=== PATIENT | female | born 1985 | race Caucasian/White ===

== ENCOUNTER 2016-10-31 19:52 | Emergency (ER) | payer OTHER ==
[2016-10-31 21:17] VITALS: BP 121/67
--- NOTE | 2016-10-31 22:07 | UC ---
Throat Pain/Nasal Emerson HPI - HPI Summary HPI Summary: compalint of sore throat that started 3 days ago fever for 2 days fatigue swollen lymph nodes slight nasal congestion denies cough took some ibuprofen for pain and fever relief - History of Current Complaint Chief Complaint: UCGeneralIllness Stated Complaint: THROAT PAIN Time Seen by Provider: 10/31/16 22:01 Hx Obtained From: Patient Hx Last Menstrual Period: 10/21/16 - Allergies/Home Medications Allergies/Adverse Reactions: Allergies Allergy/AdvReac Type Severity Reaction Status Date / Time No Known Allergies Allergy Verified 10/31/16 21:06 Home Medications: Home Medications busPIRone TAB* [Buspar TAB*] 20 mg PO BID 10/31/16 [History Confirmed 10/31/16] PMH/Surg Hx/FS Hx/Imm Hx Previously Healthy: Yes Endocrine History Of: Denies: Diabetes, Thyroid Disease, Hyperthyroidism, Hypothyroidism, Dyslipidemia Cardiovascular History Of: Denies: Cardiac Disorders, Hypertension, Pacemaker/ICD, Myocardial Infarction , Congestive Heart Failure, Atrial Fibrillation, Deep Vein Thrombosis, Bleeding Disorders Respiratory History Of: Denies: COPD, Asthma, Bronchitis, Pneumonia, Pulmonary Embolism GI/ History Of: Denies: Gastroesophageal Reflux, Ulcer, Gastrointestinal Bleed, Gall Bladder Disease, Kidney Stones, Diverticulitis, Renal Disease, Urosepsis Neurological History Of: Denies: TIA, CVA, Dementia, Seizures, Migraine Psychological History Of: Reports: Anxiety, Depression - No medications at this time. Denies: Bipolar Disorder, Schizophrenia, Post Traumatic Stress Disorder Cancer History Of: Denies: Lung Cancer, Colorectal Cancer, Breast Cancer, Prostate Cancer, Cervical Cancer Other History Of: Negative For: HIV, Hepatitis B, Hepatitis C, Anticoagulant Therapy - Surgical History Surgical History: None - Family History Known Family History: Positive: Cardiac Disease, Hypertension, Diabetes - Social History Occupation: Employed Full-time Lives: With Family Alcohol Use: Weekly Substance Use Type: None Smoking Status (MU): Never Smoked Tobacco - Immunization History Most Recent Influenza Vaccination: 2016 Review of Systems Constitutional: Fever Skin: Negative Eyes: Negative ENT: Sore Throat, Nasal Discharge Respiratory: Negative Cardiovascular: Negative Gastrointestinal: Negative Genitourinary: Negative Motor: Negative Neurovascular: Negative Musculoskeletal: Negative Neurological: Negative Psychological: Negative All Other Systems Reviewed And Are Negative: Yes Physical Exam Triage Information Reviewed: Yes Appearance: No Pain Distress, Well-Nourished Vital Signs: Initial Vital Signs Temp 98.2 F 10/31/16 21:09 Pulse 79 10/31/16 21:09 Resp 16 10/31/16 21:09 BP 121/67 10/31/16 21:09 Pulse Ox 100 10/31/16 21:09 Vital Signs Reviewed: Yes Eyes: Positive: Conjunctiva Clear ENT: Positive: Pharyngeal erythema, TMs normal, Tonsillar swelling, Tonsillar exudate. Negative: Nasal congestion, Nasal drainage Dental: Positive: Cervical Lymphadenopathy Respiratory: Positive: Lungs clear, Normal breath sounds, No respiratory distress Cardiovascular: Positive: RRR, No Murmur, Pulses Normal Abdomen Description: Positive: Nontender, Soft Bowel Sounds: Positive: Present Musculoskeletal Exam: Normal Neurological: Positive: Alert Psychological Exam: Normal Skin Exam: Normal Throat Pain/Nasal Course/Dx - Differential Dx/Diagnosis Differential Diagnosis/HQI/PQRI: Pharyngitis, Tonsillitis Provider Diagnoses: viral pharyngitis Discharge - Discharge Plan Condition: Stable Disposition: HOME Patient Education Materials: Pharyngitis (ED) Referrals: Sheila Mo NP [Primary Care Provider] - Additional Instructions: PHARYNGITIS (Sore Throat) What is Pharyngitis? The medical name for a sore throat is Pharyngitis. It is caused by an infection or irritation of your throat or tonsils. The infection can be caused by a virus or by bacteria. Not everyone with Pharyngitis needs antibiotics. Antibiotics will not make viral infections better, and they will not help a sore throat caused by irritation. Symptoms May Include: Sore throat Swelling of the glands in the neck Trouble or pain with swallowing Fever Headache Cough Extreme tiredness Ear pain Treatment Recommendations: Gargle every few hours with a solution of 1/4 teaspoon of salt dissolved in 1/ 2 cup of warm water. Drink plenty of warm beverages, like tea with lemon, (with or without honey) and soup. You may eat and drink cold foods and liquids like frozen yogurt, popsicles, and ice water if that makes your throat feel better. The goal is to keep you well hydrated. Use a "cool-mist" vaporizer or humidifier in the room where you spend most of your time. If you get a sore throat often, consider adding an electronic air filter and humidifier to your furnace system. Don't smoke. Do not eat spicy foods. Take medicine exactly as prescribed. If you do not think it is helping, call your healthcare provider. Do not increase how much or how often you take it without getting their OK first. Non-prescription anti-inflammatory medicine like ibuprofen (Motrin, Advil) or naproxen (Aleve) may help lessen the pain. You should not take these medicines if you have had bleeding in your stomach in the past. Acetaminophen ( Tylenol) is another choice of medicine that may help the pain. If pain medicine that makes you tired or sleepy or contains narcotics is prescribed, you should not drink, drive, or participate in any other activities that you need to be clear-headed for. Please keep all medicines out of the reach of children. Do not get in close contact with anyone you know who has a sore throat. Use throat lozenges (Cepostat, Waters[place], etc.) or suck on hard candy for temporary relief of the pain with swallowing. (Do not give to children under age 5.) Call Your Doctor or Return Here IF: Your symptoms do not start to get better within 2 days or you become worse. You have a fever over 101.0 F orally. You cant swallow liquids or saliva. You are drooling. You start to have trouble breathing. You start to have a rash
== END 2016-10-31 22:37 | disposition home or self-care (01) ==
LOC: UCEAST 19:52
DX: J02.9 Acute pharyngitis, unspecified (principal); R50.9 Fever, unspecified; R09.81 Nasal congestion
CPT/HCPCS: 87651; 99211; G0463

== ENCOUNTER 2017-03-27 12:22 | Emergency (ER) | payer OTHER ==
[2017-03-27 12:32] VITALS: BP 116/73
--- NOTE | 2017-03-27 13:07 | UC ---
Complaint Female HPI - HPI Summary HPI Summary: Patient presents with complaints of one day onset urinary urgency, frequency and dysuria. She denies fever, chills, nausea, vomiting. She states these symtpoms are similar to her previous UTI's. - History Of Current Complaint Chief Complaint: UCGU Stated Complaint: UTI Time Seen by Provider: 03/27/17 12:52 Hx Obtained From: Patient Hx Last Menstrual Period: last week of February, ?: No Onset/Duration: Gradual Onset, Lasting Days Timing: Constant Severity Initially: Mild Severity Currently: Moderate Character: Burning Aggravating Factor(s): Urination Associated Signs And Symptoms: Positive: Negative Related Hx: Similar Episode/Dx as: - uti - Risk Factors Ectopic Risk Factor: Negative Ovarian Torsion Risk Factor: Negative - Allergies/Home Medications Allergies/Adverse Reactions: Allergies Allergy/AdvReac Type Severity Reaction Status Date / Time No Known Allergies Allergy Verified 10/31/16 21:06 PMH/Surg Hx/FS Hx/Imm Hx Previously Healthy: Yes Other History Of: Negative For: HIV, Hepatitis B, Hepatitis C, Anticoagulant Therapy - Surgical History Surgical History: None - Family History Known Family History: Positive: Cardiac Disease, Hypertension, Diabetes - Social History Occupation: Employed Full-time Lives: Alone Alcohol Use: Weekly Substance Use Type: None Smoking Status (MU): Never Smoked Tobacco - Immunization History Most Recent Influenza Vaccination: 2016 Review of Systems Genitourinary: Dysuria, Frequency, Urgency All Other Systems Reviewed And Are Negative: Yes Physical Exam Triage Information Reviewed: Yes Appearance: Well-Appearing Vital Signs: Initial Vital Signs Temp 98.4 F 03/27/17 12:28 Pulse 98 03/27/17 12:28 Resp 16 03/27/17 12:28 BP 116/73 03/27/17 12:28 Vital Signs Reviewed: Yes Eye Exam: Normal ENT Exam: Normal Neck exam: Normal Respiratory Exam: Normal Cardiovascular Exam: Normal Abdominal Exam: Normal Musculoskeletal Exam: Normal Skin Exam: Normal Complaint Female Dx - Course Course Of Treatment: Patient presents with complaints of urinary urgency, frequency, and dysuria. UA is consisent with UTI. The patient was RX macrobid. She was instructed to follow up with her PCP if her symtpoms do not improve as anticipated. - Differential Dx/Diagnosis Differential Diagnosis/HQI/PQRI: Urinary Tract Infection Provider Diagnoses: uti Discharge - Discharge Plan Condition: Stable Disposition: HOME Prescriptions: Nitrofurantoin Monohyd Macro [Macrobid] 100 mg PO BID #14 cap Patient Education Materials: Urinary Tract Infection in Women (ED) Referrals: Malaika Tilley MD [Primary Care Provider] -
--- NOTE | 2017-03-29 16:12 | UC ---
Progress - Progress Note Progress Note: notify pt no UTI stop antibiotic see PMD or return here if still symptomatic
== END 2017-03-27 13:06 | disposition home or self-care (01) ==
LOC: UCEAST 12:22
DX: N39.0 Urinary tract infection, site not specified (principal); Z87.440 Personal history of urinary (tract) infections
CPT/HCPCS: 81003; 87086; 99212; G0463

== ENCOUNTER 2018-12-26 08:40 | Emergency (ER) | payer OTHER ==
--- OUTSIDE RECORDS SUMMARY | 2018-12-26 08:46 | XMS REPORT | Continuity of Care Document ---
:1985 External Reference #:[id number] Author Name Maxine Kay Care Team Providers Name Role Phone Malaika Tilley MD Primary Care Physician Unavailable Payers Date Identification Numbers Payment Provider Subscriber Policy Number: [id number] Leonel Killian Group Number: [id number] [address] PayID: [id number] [place] [address] Problems Active Problems Provider Date Anxiety disorder Shelia Mo, N.PMyla Onset: 05/11/2016 Depressive disorder Sheila Mo, N.PMyla Onset: 05/11/2016 Excessive and frequent menstruation Lamar Olguin M.D. 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 Capsules Vitamin B Complex 1 by mouth every Unknown day Tablets Vitamin D 1 by mouth every Unknown (Cholecalciferol) day 1000Unit Capsules Vitamin C 1 by mouth every Unknown 500mg Tablets day Ibuprofen by mouth every 4 Unknown 400mg Tablets to 6 hours as needed Flonase Allergy spray 1 spray in Unknown Relief each nostril Suspension twice daily Digestive Enzyme Unknown Fish Oil 2 caps by mouth Unknown 1200mg twice daily Capsules Herbal Anxiety Unknown History Medications Probiotic Formula Take One 60caps Sheila Chepe, 04/22/2018 - Capsule By N.P. 12/18/2018 [id number] Mouth Twice A Capsules Day Cephalexin 1 by mouth 15tabs Sangita B. 04/03/2018 - 500mg Tablets three times a [place], TRUCK SERVICE TECHNICIAN Unknown day Hydroxyzine Pamoate one by mouth 30caps F41.9 Sheila Chepe, 03/15/2018 - 25mg every 8 hours N.P. 12/18/2018 Capsules as needed for anxiety Clindamycin HCL 1 cap tid 30caps L08.9 Sheila Chepe, 12/28/2017 - 300mg N.P. 01/07/2018 Capsules Benzonatate one by mouth 30caps J06.9 Sheila Chepe, 04/09/2017 - 100mg Capsules three times N.P. 04/23/2017 daily as needed for cough Valacyclovir HCL one po tid for 21tabs N77.1 Sheila Chepe, 03/30/2017 - 1gm 7 days N.P. 04/06/2017 Tablets Bulijxvmd-Ahtpkxmvaf-We APply prn for 5800gm N77.1 Sheila Chepe, 2016 - eam Base pain N.P. 07/31/2017 2.5-2.5% Cream Buspirone HCL Take One 60tabs F32.81 Sheila Mo, 03/30/2017 - 15mg Tablets Tablet By N.P. 12/18/2018 Mouth Twice A Day Aller-Ease 1 by mouth 90tabs Lamar Olguin, 01/11/2017 - 60mg Tablets every day M.D. 07/31/2017 Amoxicillin/Clavulanate 1 tab by mouth 20tabs J01.90 Lamar Olguin, 01/11 - Potassium twice a day M.D. 02/20/2017 875-125mg Tablets Penicillin V Potassium 1 tablet by 20tabs J02.9 Bradley Jasso, TRUCK SERVICE TECHNICIAN 11/08/2016 - mouth twice a 11/12/2016 500mg Tablets day for 10 days Buspirone HCL take two 120tabs F32.81 Sheila Mo, 05/11/2016 - 5mg Tablets tablets by N.P. 03/30/2017 mouth twice a day Probiotic Daily 1 by mouth Unknown - Capsules every day 12/18/2018 Immunizations CPT Code Status Date Vaccine Reaction Lot # [id number] Given 05/11/2016 Influ Virus Vaccine, no reaction noted .. [id number] Quadrivalent, Split Virus, [place] [id number] Refused 07/31/2017 Influenza Virus Vaccine, Quadrivalent, Split, Preservative Free Vital Signs Date Vital Result Comment 12/18/2018 10:11am Height 68.5 inches 5'8.50" Weight 138.38 lb Heart Rate 71 /min BP Systolic 110 mmHg BP Diastolic 70 mmHg Body Temperature 97.0 F O2 % BldC Oximetry 97 % BMI (Body Mass Index) 20.7 kg/m2 04/12/2018 12:58pm Heart Rate 68 /min Respiratory Rate 16 /min Body Temperature 96.9 F 04/03/2018 2:19pm Heart Rate 74 /min Respiratory Rate 16 /min Body Temperature 97.2 F 03/27/2018 2:35pm Heart Rate 84 /min BP Systolic Sitting 116 mmHg BP Diastolic Sitting 70 mmHg Respiratory Rate 16 /min Body Temperature 98.2 F 03/15/2018 11:02am Height 68.5 inches 5'8.50" Weight 141.00 lb Heart Rate 77 /min BP Systolic 106 mmHg BP Diastolic 62 mmHg Body Temperature 97.9 F O2 % BldC Oximetry 98 % BMI (Body Mass Index) 21.1 kg/m2 12/28/2017 10:44am Weight 141.00 lb Heart Rate 82 /min BP Systolic 100 mmHg BP Diastolic 60 mmHg Body Temperature 97.5 F O2 % BldC Oximetry 98 % 07/31/2017 10:19am Weight 137.50 lb Heart Rate 100 /min BP Systolic Sitting 110 mmHg BP Diastolic Sitting 78 mmHg O2 % BldC Oximetry 98 % 04/09/2017 10:35am Height 68.5 inches 5'8.50" Weight 144.50 lb Heart Rate 91 /min BP Systolic 100 mmHg BP Diastolic 62 mmHg Body Temperature 97.2 F O2 % BldC Oximetry 97 % BMI (Body Mass Index) 21.6 kg/m2 03/30/2017 4:07pm Weight 146.25 lb Heart Rate 79 /min BP Systolic 108 mmHg BP Diastolic 64 mmHg Body Temperature 97.7 F O2 % BldC Oximetry 99 % 02/20/2017 10:34am Weight 144.00 lb Heart Rate 97 /min BP Systolic 110 mmHg BP Diastolic 64 mmHg Body Temperature 97.8 F O2 % BldC Oximetry 98 % 01/11/2017 9:59am Weight 142.12 lb Heart Rate 106 /min BP Systolic 102 mmHg BP Diastolic 60 mmHg Body Temperature 98.2 F O2 % BldC Oximetry 99 % 01/08/2017 9:19am Height 69 inches 5'9" Weight 143.12 lb Heart Rate 86 /min BP Systolic 100 mmHg BP Diastolic 50 mmHg Body Temperature 97.7 F O2 % BldC Oximetry 98 % BMI (Body Mass Index) 21.1 kg/m2 11/08/2016 4:15pm Weight 135.00 lb Heart Rate 98 /min BP Systolic 122 mmHg BP Diastolic 68 mmHg Body Temperature 97.0 F O2 % BldC Oximetry 99 % 08/11/2016 9:38am Weight 137.00 lb Heart Rate 74 /min BP Systolic Sitting 110 mmHg BP Diastolic Sitting 62 mmHg Respiratory Rate 15 /min Body Temperature 97.8 F O2 % BldC Oximetry 98 % 05/11/2016 8:55am Height 68 inches 5'8" Weight 143.00 lb Heart Rate 77 /min BP Systolic 98 mmHg BP Diastolic 59 mmHg Body Temperature 97.9 F O2 % BldC Oximetry 98 % BMI (Body Mass Index) 21.7 kg/m2 Results Test Date Facility Test Result H/L Range Note Laboratory test 08/31/2017 [facility] Cytology SEE RESULT [address] [place] [address] [phone] CBC Auto Diff 03/31/2017 [facility] White Blood 7.9 10^3/uL N 3.5-10.[address] [place] [address] [phone] Red Blood Count 4.62 10^6/uL N 4.0-5.4 Hemoglobin 13.6 g/dL N 12.0-16.0 Hematocrit 41 % N 35-47 Mean Corpuscular Volume 89 fL N 80-97 Mean Corpuscular Hemoglobin 29 pg N 27-31 Mean Corpuscular HGB Conc 33 g/dL N 31-36 Red Cell Distribution Width 13 % N 10.5-15 Platelet Count 247 10^3/uL N 150-450 Mean Platelet Volume 9 um3 N 7.4-10.4 Abs Neutrophils 4.1 10^3/uL N 1.5-7.7 Abs Lymphocytes 2.7 10^3/uL N 1.0-4.8 Abs Monocytes 0.9 10^3/uL High 0-0.8 Abs Eosinophils 0.1 10^3/uL N 0-0.6 Abs Basophils 0 10^3/uL N 0-0.2 Abs Nucleated RBC 0 10^3/uL N Granulocyte % 52.5 % N 38-83 Lymphocyte % 34.5 % N 25-47 Monocyte % 11.4 % High 1-9 Eosinophil % 1.2 % N 0-6 Basophil % 0.4 % N 0-2 Nucleated Red Blood Cells % 0 N Laboratory test 03/31/2017 [facility] Anti Nuclear 0.5 U N 2 finding [address] [facility] [place] [address] [phone] Comp Metabolic 03/31/2017 [facility] Sodium 139 mmol/L N 133- 145 Panel [address] [place] [address] [phone] Potassium 4.6 mmol/L N 3.5-5.0 Chloride 103 mmol/L N 101-111 Co2 Carbon Dioxide 31 mmol/L N 22-32 Anion Gap 5 mmol/L N 2-11 Glucose 79 mg/dL N 70-100 Blood Urea Nitrogen 11 mg/dL N 6-24 Creatinine 0.62 mg/dL N 0.51-0.95 BUN/Creatinine Ratio 17.7 N 8-20 Calcium 9.6 mg/dL N 8.6-10.3 Total Protein 7.0 g/dL N 6.4-8.9 Albumin 4.5 g/dL N 3.2-5.2 Globulin 2.5 g/dL N 2-4 Albumin/Globulin Ratio 1.8 N 1-3 Total Bilirubin 0.50 mg/dL N 0.2-1.0 Alkaline Phosphatase 58 U/L N 34-104 Alt 19 U/L N 7-52 Ast 20 U/L N 13-39 Egfr Non- 112.3 N >60 Egfr 144.4 N >60 3 Laboratory test 03/31/2017 [facility] TSH (Thyroid 1.57 mcIU/mL N 0.34-5.[address] Stim [place]) [place] [address] [phone] Ua Routine 03/30/2017 [facility] Ua Specific 1005 Flora Ua PH 5 Ua Color yellow Ua Appera clear Ua WBC trace Ua Protein negative Ua Glucose normal Ua Ketones negative Ua Bilirubin negative Ua Urobilinogen normal Ua Nitrite negative Ua Occult Blood negative Urine Culture And 03/30/2017 [facility] Urine Culture SEE RESULT [address] [place] [address] [phone] Herpes Simplex PCR 03/30/2017 [facility] Herpes Source VULVAR LESION N [address] [place] [address] [phone] HSV 1 PCR Positive N Negative HSV 2 PCR Negative N Negative 5 Poc Urinalysis 03/27/2017 [facility] Poc Glucose, Negative N Negative [address] [place] [address] [phone] Poc Bilirubin, Urine Negative N Negative Poc Ketone, Urine Negative N Negative Poc Specific Flora, Urine 1.015 N 1.010-1.030 Poc Blood, Urine Trace-intact Abnormal Negative Poc pH, Urine 7.0 N 5-9 Poc Protein, Urine Negative N Negative Poc Urobilinogen, Urine 0.2 N Negative Poc Nitrite, Urine Negative N Negative Poc Leukocytes, Urine Trace Abnormal Negative Poc Color, Urine Yellow N Poc Clarity, Urine Clear N 6 Urine Culture And 03/27/2017 [facility] Urine SEE RESULT 7 , [address] [place] [address] [phone] Laboratory test 02/20/2017 [facility] Lyme Disease Negative N Negative [address] [place] [address] [phone] Ua Routine 01/11/2017 [facility] Ua Specific 1.005 Flora Ua PH 7 Ua Color dark yellow Ua Appera clear Ua WBC neg Ua Protein neg Ua Glucose neg Ua Ketones neg Ua Bilirubin trace Ua Urobilinogen 4 Ua Nitrite neg Ua Occult Blood neg Laboratory test 11/08/2016 [facility] Culture SEE RESULT [address] [place] [address] [phone] Laboratory test 11/08/2016 [facility] Rapid Group A negative finding Strep Laboratory test 10/31/2016 [facility] Rapid Strep Negative N Negative [address] [place] [address] [phone] Laboratory test 05/11/2016 [facility] TSH (Thyroid 0.88 mcIU/mL N 0.34-5.[address] Stim [place]) [place] [address] [phone] Comp Metabolic 05/11/2016 [facility] Sodium 139 mmol/L N 133- [address] [place] [address] [phone] Potassium 4.0 mmol/L N 3.5-5.0 Chloride 104 mmol/L N 101-111 Co2 Carbon Dioxide 29 mmol/L N 22-32 Anion Gap 6 mmol/L N 2-11 Glucose 87 mg/dL N 70-100 Blood Urea Nitrogen 10 mg/dL N 6-24 Creatinine 0.79 mg/dL N 0.51-0.95 BUN/Creatinine Ratio 12.7 N 8-20 Calcium 9.6 mg/dL N 8.6-10.3 Total Protein 6.8 g/dL N 6.4-8.9 Albumin 4.5 g/dL N 3.2-5.2 Globulin 2.3 g/dL N 2-4 Albumin/Globulin Ratio 2.0 N 1-3 Total Bilirubin 0.40 mg/dL N 0.2-1.0 Alkaline Phosphatase 50 U/L N 34-104 Alt 11 U/L N 7-52 Ast 19 U/L N 13-39 Egfr Non- 85.5 N >60 Egfr 109.9 N >60 12 CBC Auto Diff 05/11/2016 [facility] White Blood 8.2 10^3/uL N 3.5-10.[address] [place] [address] [phone] Red Blood Count 4.07 10^6/uL N 4.0-5.4 Hemoglobin 12.6 g/dL N 12.0-16.0 Hematocrit 37 % N 35-47 Mean Corpuscular Volume 92 fL N 80-97 Mean Corpuscular Hemoglobin 31 pg N 27-31 Mean Corpuscular HGB Conc 34 g/dL N 31-36 Red Cell Distribution Width 12 % N 10.5-15 Platelet Count 299 10^3/uL N 150-450 Mean Platelet Volume 9 um3 N 7.4-10.4 Abs Neutrophils 4.9 10^3/uL N 1.5-7.7 Abs Lymphocytes 2.4 10^3/uL N 1.0-4.8 Abs Monocytes 0.6 10^3/uL N 0-0.8 Abs Eosinophils 0.2 10^3/uL N 0-0.6 Abs Basophils 0.1 10^3/uL N 0-0.2 Abs Nucleated RBC 0 10^3/uL N Granulocyte % 60.0 % N 38-83 Lymphocyte % 29.9 % N 25-47 Monocyte % 7.0 % N 1-9 Eosinophil % 2.4 % N 0-6 Basophil % 0.7 % N 0-2 Nucleated Red Blood Cells % 0 N 1 SEE RESULT BELOW Name: JUDIT KILLIAN : [address]: Julius Dodson MD Acct: [id number] Unit: [id number] AGE: 31 Location: [facility] Re08/31/17 SEX: F Status: REG REF SPEC: [id number] POLINA: 08/31/17-[address] [facility] [address]: Julius Dodson MD REQ: [id number] RECD: 09/03/17-1116 STATUS: MARCELLE COHU DR: Malaika Tilley MD _ ORDERED: TP IMAGE ANAL, HPV/Thin Prep COMMENTS: [id number] Negative for Intraepithelial lesion or Malignancy A. Ectocervical/Endocervical Specimen Adequacy: Satisfactory of evaluation Transformation zone component identified Patient Information: HPV: High risk HPV RNA testing regardless of pap results. Actual Specimen Date: 09/03/17 Last Menstrual Date: 08/16/17 Spec Date if unknown: unknown Date Time Test Result Flag (u) Normal Range 08/31/17 1526 @ HPV RNA Negative Negative @ @ The high-risk HPV types detected by the assay include: 16, @ 18, 31, 33, 35, 39, 45, 51, 52, 56, 58, 59, 66, and 68. Signed (signature on file) LORENZO Lamar (ASCP) 09/04 1512 This Pap test was evaluated with the assistance of the ThinPrep Test Imaging System. Due to cytologic findings at the bus and rail operator microscope, comprehensive manual rescreening by a Wax Pattern Repairer may be required. The Pap Smear is a screening test designed to aid in the detection of premalignant and malignant conditions of the uterine cervix. It is not a diagnostic procedure and should not be used as the sole means of detecting cervical cancer. Both false- positive and false- negative reports do occur. Depending on your risk status, a Pap smear should be obtained and evaluated every 1-3 years. END OF REPORT * ML=Testing performed at Main Lab DEPARTMENT OF PATHOLOGY, [address] [place] [address] Paul Caputo M.D. Director [facility] # [id number] 2 REFERENCE VALUE <=1.0 (Negative) Test Performed by: [address] [id number] 3 Because ethnic data is not always readily available, this report includes an eGFR for both -Americans and non- Americans. The National Kidney Disease Education Program (NKDEP) does not endorse the use of the MDRD equation for patients that are not between the ages of 18 and 70, are , have extremes of body size, muscle mass, or nutritional status, or are non- or non-. According to the National Kidney Foundation, irrespective of diagnosis, the stage of the disease is based on the level of kidney function: Stage Description GFR(mL/min/1.73 m(2)) 1 Kidney damage with normal or decreased GFR 90 2 Kidney damage with mild decrease in GFR 60-89 3 Moderate decrease in GFR 30-59 4 Severe decrease in GFR 15-29 5 Kidney failure <15 (or dialysis) 4 SEE RESULT BELOW Name: JUDIT KILLIAN : [address]: Sheila Mo NP Acct: [id number] Unit: [id number] AGE: 31 Location: [facility] Re03/30/17 SEX: F Status: REG REF SPEC: [id number] POLINA: 03/30/[address]: Sheila Mo NP REQ: [id number] RECD: 04/02/17 STATUS: COMP _ SOURCE: URINE SPDESC: ORDERED: Urine Culture COMMENTS: [id number] INTERPRET RESULTS WITH CAUTION SPECIMENS COLLECTED 03/30/17, BUT NOT DELIVERED TO THE LAB UNTIL 04/02/17, WHICH IS BEYOND SPECIMEN STABILITY. Reviewed by Kaylan Ahumada MD Verbal to ARMANDO ALMODOVAR by [id number] at 0957 on 04/03/17. Results read back accurately. Urine Source: Random Procedure Result Reported Site Urine Culture Final 04/04/17- 1421 ML No growth of clinically significant organisms * ML - [facility] ([facility]) . END OF REPORT * ML=Testing performed at Main Lab DEPARTMENT OF PATHOLOGY, [address] [place] [address] Paul Caputo M.D. Director [facility] # [id number] 5 ADDITIONAL INFORMATION This test was developed using an analyte specific reagent. Its performance characteristics were determined by [facility] in a manner consistent with CLIA requirements. This test has not been cleared or approved by the U.S. Food and Drug Administration. Test Performed by: [address] [address] 6 Manager Pharmacy: [id number] SEE RESULT BELOW Name: JUDIT KILLIAN : [address]: Mitch Romero MD Acct: [id number] Unit: [id number] AGE: 31 Location: [facility] Re03/27/17 SEX: F Status: DEP ER SPEC: [id number] POLINA: 03/27/17-[address]: Jeannette Ngo TRUCK SERVICE TECHNICIAN REQ: [id number] RECD: 03/27/17160 STATUS: DARWIN CHOU DR: Fernando Physicians Malaika Tilley MD _ SOURCE: URINE SPDESC: ORDERED: Urine Culture COMMENTS: [id number] Procedure Result Reported Site Urine Culture Final 03/29/17- 0850 ML No growth of clinically significant organisms * ML - MAIN LAB ([facility]) . END OF REPORT * ML=Testing performed at Main Lab DEPARTMENT OF PATHOLOGY, [address] [place] [address] Paul Caputo M.D. Director [facility] # [id number] 9 Serologic response to B. burgdorferi infection is not detected, but cannot rule out early infection during which low or undetectable antibody levels to B. burgdorferi may be present. If clinically indicated, a new serum specimen should be submitted in 7-14 days. Test Performed by: [address] [address] 10 SEE RESULT BELOW Name: JUDIT KILLIAN : [address]: Bradley Jasso NP Acct: [id number] Unit: [id number] AGE: 31 Location: [facility] Re11/08/16 SEX: F Status: REG REF SPEC: [id number] POLINA: 11/08/16-[address]: Bradley Jasso NP REQ: [id number] RECD: 11/08/16 STATUS: COMP _ SOURCE: THROAT SPDESC: ORDERED: Throat Culture COMMENTS: [id number] Procedure Result Reported Site Throat Culture Final 11/10/16- 1131 ML Organism 1 NORMAL GEGE Quantity 3+ Throat cultures are clinically indicated to detect the presence of group A strep, arcanobacterium and yeast. In certain cases, predominating organisms will be reported. * ML - MAIN LAB ([facility]) . END OF REPORT * ML=Testing performed at Main Lab DEPARTMENT OF PATHOLOGY, [address] [place] [address] Paul Caputo M.D. Director [facility] # [id number] 11 Manager Pharmacy: [id number] Because ethnic data is not always readily available, this report includes an eGFR for both -Americans and non- Americans. The National Kidney Disease Education Program (NKDEP) does not endorse the use of the MDRD equation for patients that are not between the ages of 18 and 70, are , have extremes of body size, muscle mass, or nutritional status, or are non- or non-. According to the National Kidney Foundation, irrespective of diagnosis, the stage of the disease is based on the level of kidney function: Stage Description GFR(mL/min/1.73 m(2)) 1 Kidney damage with normal or decreased GFR 90 2 Kidney damage with mild decrease in GFR 60-89 3 Moderate decrease in GFR 30-59 4 Severe decrease in GFR 15-29 5 Kidney failure <15 (or dialysis) Procedures Date Code Description Status 03/27/2018 78045 I&D Abscess Simple Completed Encounters Type Date Location Provider Dx Diagnosis Office Visit 03/15/2018 [facility] Internal Sheila Mo, F41.9 Anxiety disorder , 11:20a Medicine - N.P. unspecified [place] L72.3 Sebaceous cyst Office Visit 12/28/2017 10:40a [facility] Internal Sheila Mo, L08.9 Local infection of Medicine N.P. the skin and subcutaneous tissue, unsp Office Visit 07/31/2017 10:10a [facility] Internal Lamar Olguin, N92.0 Excessive and Case Garibay M.D. frequent [place] menstruation with regular cycle R63.2 Polyphagia N94.10 Unspecified dyspareunia Office Visit 04/09/2017 10:40a [facility] Internal Sheila Mo, Z00.01 Encounter for Medicine N.P. general adult medical exam w abnormal findings F41.9 Anxiety disorder, unspecified R69 Illness, unspecified J06.9 Acute upper respiratory infection, unspecified Office Visit 03/30/2017 4:00p [facility] Internal Sheila Mo N.P. R30.0 Dysuria Medicine F41.9 Anxiety disorder, unspecified N77.1 Vaginitis, vulvitis and vulvovaginitis in dis classd elswhr R69 Illness, unspecified Office Visit 02/20/2017 [facility] Sheila Mo, S80.862A Insect bite 10:20a Medicine N.P. (nonvenomous), left lower leg, initial encounter Office Visit 01/11/2017 [facility] Internal Lamar J01.90 Acute sinusitis, 10:10a Case Olguin M.D. unspecified [place] R30.0 Dysuria Office Visit 01/08/2017 9:20a [facility] Internal Lamar Olguin J01.90 Acute sinusitis, Medicine - Gm unspecified [place] Office Visit 11/08/2016 3:40p [facility] Internal Bradley Jasso NP J02.9 Acute Medicine pharyngitis, unspecified Office Visit 08/11/2016 10:00a [facility] Internal Sheila Mo, F41.9 Anxiety disorder, Medicine N.P. unspecified F32.81 Premenstrual dysphoric disorder Office Visit 05/11/2016 9:00a [facility] Internal Sheila Mo, F32.81 Premenstrual Medicine N.P. dysphoric disorder N92.4 Excessive bleeding in the premenopausal period Z23 Encounter for immunization F41.9 Anxiety disorder, unspecified Plan of Treatment 12/18/2018 - Sheila Mo, N.P.R51 HeadacheNew Xrays:MRI Brain W/O, Ordered: Comments:To further evaluate your headaches I have ordered an MRI of your brain. I will contact you with yourresults.F43.23 Adjustment disorder with mixed anxiety and depressed moodComments:I have ordered blood work to screen for thyroid disorders and ametabolic panel.I will contact you with your results.
[2018-12-26 08:53] VITALS: BP 110/62
--- NOTE | 2018-12-26 09:27 | UC ---
Ear Complaint HPI - HPI Summary HPI Summary: 33-year-old female presents with recurring right-sided ear pain, drainage that she relates to allergies. She states that this started about a week ago and has gotten better as of late. It still is a little bit sore. Every now and then she gets and itching in the area which she scratches and then it usually is followed by pain, swelling and drainage. She does report a history of psoriasis. - History of Current Complaint Chief Complaint: UCEar Stated Complaint: EAR PAIN Time Seen by Provider: 12/26/18 09:19 Hx Obtained From: Patient Hx Last Menstrual Period: 12/20/18 Pain Intensity: 3 - Allergies/Home Medications Allergies/Adverse Reactions: Allergies Allergy/AdvReac Type Severity Reaction Status Date / Time No Known Allergies Allergy Verified 12/26/18 08:53 PMH/Surg Hx/FS Hx/Imm Hx Previously Healthy: Yes - psoriasis Other History Of: Negative For: HIV, Hepatitis B, Hepatitis C, Anticoagulant Therapy - Surgical History Surgical History: None - Family History Known Family History: Positive: Cardiac Disease, Hypertension, Diabetes - Social History Occupation: Employed Part-time Lives: With Family Alcohol Use: Weekly Substance Use Type: None Smoking Status (MU): Never Smoked Tobacco - Immunization History Most Recent Influenza Vaccination: 2016 Review of Systems All Other Systems Reviewed And Are Negative: Yes Constitutional: Negative: Fever Skin: Negative: Rash ENT: Positive: Ear Ache. Negative: Sore Throat, Nasal Discharge Respiratory: Positive: Negative Cardiovascular: Positive: Negative Physical Exam Triage Information Reviewed: Yes Appearance: Well-Appearing, No Pain Distress, Well-Nourished Vital Signs: Initial Vital Signs Temp 97.7 F 12/26/18 08:51 Pulse 84 12/26/18 08:51 Resp 17 12/26/18 08:51 BP 110/62 12/26/18 08:51 Pulse Ox 100 12/26/18 08:51 Vital Signs Reviewed: Yes Eyes: Positive: Conjunctiva Clear ENT: Positive: Hearing grossly normal, Pharynx normal, TMs normal, Other - R ear canal is clear. Mild pinnae redness without mastoid changes or tenderness. No drainage. Negative: Nasal congestion, Nasal drainage Neck: Positive: No Lymphadenopathy Respiratory: Positive: Lungs clear Cardiovascular: Positive: RRR Musculoskeletal: Positive: ROM Intact Neurological: Positive: Alert Skin Exam: Normal Ear Complaint Course/Dx - Course Course Of Treatment: Patient has history of psoriasis with likely psoriatic lesion that she is excoriating and getting otitis externa. Her symptoms are largely improved at and her exam is mostly normal at present. Prescribed Cortisporin topical drops for as needed use. - Differential Dx/Diagnosis Differential Diagnosis/HQI/PQRI: Mastoiditis, Otitis Externa, Otitis Media Provider Diagnosis: Right otitis externa, History of psoriasis Discharge - Sign-Out/Discharge Documenting (check all that apply): Patient Departure All imaging exams completed and their final reports reviewed: No Studies - Discharge Plan Condition: Improved Disposition: HOME Prescriptions: Neomyc/Polym/HC 1% OTIC SUSP* [Cortisporin Otic Susp 1%*] 4 drop RIGHT EAR QID PRN #1 [id number] PRN Reason: infection/allergy Patient Education Materials: Otitis Externa (ED) Referrals: Malaika Tilley MD [Primary Care Provider] - Additional Instructions: Avoid items in the ear. This may be something that can be controlled with a steroid ear drop if it becomes more chronic in nature. It may be related to psoriasis. See your doctor for this. Return if worse, new symptoms or other concerns. - Billing Disposition and Condition Condition: IMPROVED Disposition: Home
== END 2018-12-26 09:25 | disposition home or self-care (01) ==
LOC: UCEAST 08:40
DX: H60.91 Unspecified otitis externa, right ear (principal); L40.9 Psoriasis, unspecified
CPT/HCPCS: 99212; G0463